=== PATIENT | male | born 1950 | race Caucasian/White ===

== ENCOUNTER 2018-09-04 09:44 | Inpatient (IN) | payer MEDICARE, OTHER ==
[~2018-09-04] VITALS: Ht 170.2 cm; Wt 63.3 kg
[2018-09-04] MEDS ORDERED: SODIUM CHLORIDE FLUSH 10ML SYR IVF ONE (10:00)
--- NOTE | 2018-09-04 10:00 | NUR ---
BIB [facility] WITH NEURO COMPLAINT/DEFICITS FIRST NOTICED AT 0800. LAST SEEN NORMAL AT MIDNIGHT. DR LAMBERT AT ON ARRIVAL TO EVALUATE.
--- NOTE | 2018-09-04 10:05 | NUR ---
PT TO CT.
[2018-09-04 10:28] LABS: BASOPHILS # (AUTO) 0.03 x10^3/uL (0-0.1); BASOPHILS % (AUTO) 0 % (0-1); EOSINOPHILS # (AUTO) 0.31 x10^3/uL (0-0.4); EOSINOPHILS % (AUTO) 4 % (1-7); LYMPHOCYTES # (AUTO) 1.86 x10^3/uL (1-3.4); LYMPHOCYTES % (AUTO) 25 % (22-44); MD NO; MEAN CORPUSCULAR HEMOGLOBIN 30.9 pg (27.5-34.5); MEAN CORPUSCULAR HGB CONC 33.8 g/dL (33.2-36.2); MEAN CORPUSCULAR VOLUME 91.5 fL (81-97); MEAN PLATELET VOLUME 10.1 fL (7.4-10.4); MONOCYTES % (AUTO) 7 % (2-9); NEUTROPHILS # (AUTO) 4.83 x10^3/uL (1.8-6.8); NEUTROPHILS % (AUTO) 64 % (42-75); PLATELET COUNT 164 x10^3/uL (130-400); RED BLOOD COUNT 4.63 x10^6/uL (4.38-5.82); RED CELL DISTRIBUTION WIDTH 13.6 % (9.4-14.8)
[2018-09-04 10:37] LABS: CHLORIDE 111 mmol/L (98-107)
[2018-09-04 10:38] LABS: INTERNATIONAL NORMALIZED RATIO 1.05 (0.93-1.1); PROTHROMBIN TIME 11.1 Seconds (9.6-11.5)
[2018-09-04 10:52] LABS: ALANINE AMINOTRANSFERASE 31 U/L (12-78); ALBUMIN 3.8 g/dL (3.4-5.0); ALKALINE PHOSPHATASE 55 U/L (45-117); ANION GAP 5 mmol/L (5-15); BILIRUBIN,TOTAL 0.4 mg/dL (0.2-1.0); CALCIUM 8.2 mg/dL (8.5-10.1); CREATININE 0.97 mg/dL (0.7-1.3); TOTAL PROTEIN 6.9 g/dL (6.4-8.2); TROPONIN I < 0.015 ng/mL (0.000-0.045)
[2018-09-04] MEDS ORDERED: ASPIRIN 325 MG TABLET EC ONE (11:19)
--- NOTE | 2018-09-04 11:28 | NUR ---
ASPIRIN GIVEN PER ERP ORDER. PT PASSES SWALLOW SCREEN PRIOR. PT CONTINUES WITH SLIGHT SLURRED SPEECH AND R SIDED WEAKNESS. VSS/UPDATED IN COMPUTER. WOUND TO SCALP CLEANED, ORDER FOR TETANUS OBTAINED. BACITRACIN AND BANDAID TO WOUND.
[2018-09-04] MEDS ORDERED: ASPIRIN 325 MG TABLET EC PO ONE (11:30)
[2018-09-04] MEDS ORDERED: DIPH,PERTUSS(ACELL),TET VAC/PF 0.5 ML IM-VACC ONE (11:32)
[2018-09-04] MEDS ORDERED: BACITRACIN ZINC OINT 500U/GM, 0.9 GM ONE (11:32)
--- NOTE | 2018-09-04 11:44 | NUR ---
[facility] IN TO SEE PT.
[2018-09-04] MEDS ORDERED: SODIUM CHLORIDE FLUSH 10ML SYR IVF PRN (12:00)
[2018-09-04] MEDS ORDERED: ACETAMINOPHEN 325 MG TABLET PO PRN (12:30)
[2018-09-04] MEDS ORDERED: DOCUSATE 100 MG CAPSULE PO PRN (12:30)
[2018-09-04] MEDS ORDERED: GABAPENTIN 300 MG CAPSULE PO PRN (12:30)
[2018-09-04] MEDS ORDERED: ONDANSETRON 4 MG TABLET PO PRN (12:30)
[2018-09-04] MEDS ORDERED: ONDANSETRON 2MG/ML, 2ML IVPush PRN (12:30)
[2018-09-04] MEDS ORDERED: LABETALOL 5MG/ML, 20ML IV PRN (12:30)
[2018-09-04] MEDS ORDERED: POLYETHYLENE GLYCOL 17 GM PACKET PO PRN (12:30)
--- NOTE | 2018-09-04 12:48 | NUR ---
REPORT TO HALLIE MIDDLETON. PT READY FOR TRANPORT TO FLOOR.
[2018-09-04] MEDS ORDERED: DIPHTHERIA-TETANUS ADULT 0.5ML IM-VACC ONE (13:00)
[2018-09-04 17:28] VITALS: BP 130/80
[2018-09-04 18:17] LABS: THYROID STIMULATING HORMONE 0.941 mIU/L (0.358-3.740)
[2018-09-04 19:33] VITALS: BP 147/83
[2018-09-04] MEDS: ATORVASTATIN 80 MG TABLET PO SCH (21:00)
[2018-09-05 01:53] VITALS: BP 143/74
[2018-09-05 06:51] LABS: LDL/HDL RATIO 2.5 (0.5-3.0)
[2018-09-05 07:32] VITALS: BP 143/83
[2018-09-05] MEDS: ASPIRIN 81 MG TABLET CHEW PO/NG SCH (08:06)
[2018-09-05 13:20] VITALS: BP 136/83
[2018-09-05] MEDS ORDERED: ENOXAPARIN 40 MG/0.4 ML SQ SCH (14:30)
[2018-09-05 18:11] VITALS: BP 155/93
[2018-09-05] MEDS: ATORVASTATIN 80 MG TABLET PO SCH (21:00)
[2018-09-06 00:42] VITALS: BP 138/73
[2018-09-06 07:20] VITALS: BP 154/89
[2018-09-06] MEDS: ASPIRIN 81 MG TABLET CHEW PO/NG SCH (09:45)
[2018-09-06] MEDS ORDERED: ASPI-515 PO/NG (12:52)
[2018-09-06] MEDS ORDERED: DOCU-131 PO (12:52)
[2018-09-06] MEDS ORDERED: ACET325T14 PO (12:52)
[2018-09-06] MEDS ORDERED: ATOR-2 PO (12:52)
[2018-09-06] MEDS ORDERED: ENOX40SY4 SQ (12:52)
[2018-09-06 13:49] VITALS: BP 128/76
== END 2018-09-06 15:05 | DRG 65 ==
LOC: ED 11:50 → EDIP 11:51 → ED 12:26 → 4WST 13:31
PROVIDERS: ADMIT Internal Medicine; ATTEND Internal Medicine
DX: I63.539 Cerebral infarction due to unspecified occlusion or stenosis of unspecified posterior cerebral artery (principal); G81.91 Hemiplegia, unspecified affecting right dominant side; R47.01 Aphasia; I10 Essential (primary) hypertension; I49.3 Ventricular premature depolarization; E78.5 Hyperlipidemia, unspecified; H53.40 Unspecified visual field defects; I65.23 Occlusion and stenosis of bilateral carotid arteries; S01.81XA Laceration without foreign body of other part of head, initial encounter; W06.XXXA Fall from bed, initial encounter; Y93.89 Activity, other specified; Y92.89 Other specified places as the place of occurrence of the external cause; Y99.8 Other external cause status; Z79.82 Long term (current) use of aspirin
CPT/HCPCS: 36415; 70450; 70551; 80053; 80061; 83735; 84443; 84484; 85025; 85610; 85730; 90714; 93005; 93306; 93880; 99291; G0378; J1650; 92523-GN

== ENCOUNTER 2018-10-16 11:23 | Day surgery (SDC) | payer MEDICARE ==
[~2018-10-16] VITALS: Ht 165.1 cm; Wt 62.0 kg
[~2018-10-16 11:23] MED LIST: ACET325T14 PO; ASPI-515 PO/NG; ATOR-2 PO; DOCU-131 PO; ENOX40SY4 SQ
[2018-10-16] MEDS ORDERED: LIDOCAINE 1%, 20ML ONE (11:50)
[2018-10-16 12:07] VITALS: BP 139/86
[2018-10-16] MEDS ORDERED: SODIUM CHLORIDE 0.9% 1,000 ML IV SCH (14:45)
== END 2018-10-16 13:03 | disposition home or self-care (01) ==
LOC: CACL 11:23
PROVIDERS: ATTEND Internal Medicine Cardiovascular Disease
DX: Z45.09 Encounter for adjustment and management of other cardiac device (principal); I63.532 Cerebral infarction due to unspecified occlusion or stenosis of left posterior cerebral artery; E78.2 Mixed hyperlipidemia; I10 Essential (primary) hypertension; Z79.82 Long term (current) use of aspirin
CPT/HCPCS: 33285; C1764; J3490

== ENCOUNTER 2019-09-15 10:49 | Day surgery (SDC) | payer MEDICARE ==
[~2019-09-15] VITALS: Ht 172.7 cm; Wt 64.1 kg
[2019-09-15] MEDS ORDERED: LIDOCAINE 2%, 20ML ONE (11:11)
== END 2019-09-15 12:59 | disposition home or self-care (01) ==
LOC: CACL 10:49
PROVIDERS: ATTEND Internal Medicine Cardiovascular Disease
DX: Z45.09 Encounter for adjustment and management of other cardiac device (principal); I48.0 Paroxysmal atrial fibrillation; I69.351 Hemiplegia and hemiparesis following cerebral infarction affecting right dominant side; G47.30 Sleep apnea, unspecified; E78.5 Hyperlipidemia, unspecified; Z79.01 Long term (current) use of anticoagulants; Z79.899 Other long term (current) drug therapy; Z82.49 Family history of ischemic heart disease and other diseases of the circulatory system
CPT/HCPCS: 33286